=== PATIENT | female | born 1990 | race Caucasian/White ===

== ENCOUNTER 2021-05-21 17:43 | Emergency (ER) | payer OTHER ==
[~2021-05-21] VITALS: Ht 162.6 cm; Wt 86.2 kg
[~2021-05-21 17:43] MED LIST: BACTRIM DS TAB1 EACH PO; COREG6.25 MG PO; FLEXERIL 10 MG10 MG PO; IBUPROFEN600 MG PO; LEVAQUIN750 MG PO; NORCO 5-325 TA1 EACH PO; NORFLEX 100 MG100 MG PO; NORVASC 5 MG TAB5 MG PO; OMNICEF 300 MG300 MG PO; PREDNISONE 50 M50 MG PO; SYNTHROID100 MCG PO; TRAZODONE HCL100 MG PO; VOLTAREN EC 7575 MG PO; ZOFRAN4 MG PO; ZOLOFT100 MG PO
== END 2021-05-21 21:10 | disposition home or self-care (01) ==
LOC: ER1 17:43
DX: U07.1 COVID-19 (principal); I10 Essential (primary) hypertension; Z23 Encounter for immunization; Z79.899 Other long term (current) drug therapy
CPT/HCPCS: 99283; M0243

== ENCOUNTER 2021-10-12 12:35 | Emergency (ER) | payer OTHER ==
[2021-10-12 13:17] LABS: HEMOGLOBIN 16.1 gm/dl (12.3-15.3); RED BLOOD COUNT 5.31 M/UL (4.00-5.10); WHITE BLOOD COUNT 9.7 K/UL (4.5-11.0)
[2021-10-12 13:52] LABS: BUN/CREATININE RATIO 13 (0-10)
[2021-10-12] MEDS ORDERED: CEFDINIR300 MG PO (16:10)
== END 2021-10-12 16:35 | disposition home or self-care (01) ==
LOC: ER1 12:35
PROVIDERS: Physician Assistant
DX: N39.0 Urinary tract infection, site not specified (principal)
CPT/HCPCS: 80053; 81001; 84703; 85025; 87086; 96374; 99284; J2405; Q9967